=== PATIENT | female | born 1985 | race Caucasian/White ===

== ENCOUNTER 2018-09-19 20:44 | Emergency (ER) | payer OTHER ==
[~2018-09-19] VITALS: Ht 172.7 cm; Wt 68.0 kg
[2018-09-19 20:46] VITALS: BP 133/102
--- NOTE | 2018-09-19 20:51 | NUR ---
DR. CHAMPION BEDSIDE EVALUATING PT
[2018-09-19 20:58] VITALS: BP 128/89
--- NOTE | 2018-09-19 20:58 | NUR ---
Patient discharged with v/s stable. Written and verbal after care instructions given and explained. Patient verbalized understanding. Ambulatory with in custody W/ [facility]. All questions addressed prior to discharge. Advised to follow up with PMD.
== END 2018-09-19 20:58 ==
LOC: MED 20:44
DX: Z02.89 Encounter for other administrative examinations (principal); Z04.1 Encounter for examination and observation following transport accident; V89.2XXA Person injured in unspecified motor-vehicle accident, traffic, initial encounter; Y93.89 Activity, other specified; Y92.89 Other specified places as the place of occurrence of the external cause; Y99.8 Other external cause status
CPT/HCPCS: 99283